=== PATIENT | male | born 1955 | race Caucasian/White ===

== ENCOUNTER 2018-08-22 05:47 | Emergency (ER) ==
[2018-08-22 05:51] VITALS: BP 143/86; TEMP 98.5; BMI 30.1
--- NOTE | 2018-08-22 06:08 | ED.PDOC ---
General ED Provider: Dr. HUMERA AUSTIN-ER Chief Complaint: Sore Throat Stated Complaint: my throat is not getting better Time Seen by Physician: 06:06 Mode of Arrival: Walk-In Information Source: Patient Exam Limitations: No limitations Primary Care Provider: HUMERA AUSTIN Nursing and Triage Documentation Reviewed and Agree: Yes Does patient meet sepsis criteria?: No System Inflammatory Response Syndrome: Not Applicable Sepsis Protocol: For patient's 13 years and over: Temp is 96.8 and below OR 101 and greater Pulse >90 BPM Resp >20/minute Acutely Altered Mental Status Are patient's symptoms suggestive of a new infection, such as: -Pneumonia -Skin, Soft Tissue -Endocarditis -UTI -Bone, Joint Infection -Implantable Device -Acute Abdominal Infection -Wound Infection -Meningitis -Blood Stream Catheter Infection -Unknown EENT Complaint Exam - Throat Complaint/Exam Onset/Duration: a few days Symptoms Are: Still present Timimg: Constant Initial Severity: Mild Current Severity: Moderate Aggravating: Reports: Eating Alleviating: Reports: Antipyretics Associated Signs and Symptoms: Reports: Fever, Dysphagia, Nasal congestion Related History: Reports: Similar Episode Uvula Midline: Yes Lesvia-tonsillar Fluctuence: No Scarlatinaform Rash Present: No Exanthem: Present: Pharynx Vesicles: Present: Pharynx Stridor Present: No Sinus Tenderness Present: No Tonsillar Hypertrophy Present: No Tonsillar Exudate Present: No Lesvia-tonsillar Swelling Present: No Adenopathy Present: No Splenomegaly Present: No Differential Diagnoses: Pharyngitis Review of Systems - Review Of Systems Constitutional: Reports: Chills, Fever Eyes: Reports: No symptoms Ears, Nose, Mouth, Throat: Reports: Throat pain, Throat swelling Respiratory: Reports: No symptoms Cardiac: Reports: No symptoms GI: Reports: No symptoms : Reports: No symptoms Musculoskeletal: Reports: No symptoms Skin: Reports: No symptoms Neurological: Reports: No symptoms Endocrine: Reports: No symptoms Hematologic/Lymphatic: Reports: No symptoms All Other Systems: Reviewed and Negative Past Medical History - Past Medical History Previously Healthy: Yes Endocrine: Reports: Unknown Cardiovascular: Reports: Unknown Respiratory: Reports: Unknown Hematological: Reports: Unknown Gastrointestinal: Reports: Unknown Genitourinary: Reports: Unknown Neuro/Psych: Reports: Unknown Musculoskeletal: Reports: Unknown Cancer: Reports: Unknown - Surgical History General Surgical History: Reports: Unknown - Family History Family History: Reports: Unknown - Social History Smoking Status: Never smoker Hx Substance Use: No Alcohol Screening: None - Immunizations Tetanus Shot up to Date: Yes Physical Exam - Physical Exam Appearance: Well-appearing, No pain distress, Well-nourished Pain Distress: Moderate Eyes: DAWNA, EOMI, Conjunctiva clear ENT: Erythema, Exudate Neck: Supple Respiratory: Airway patent, Breath sounds clear, Breath sounds equal, Respirations nonlabored Cardiovascular: RRR, Pulses normal, No rub, No murmur GI/: Soft, Nontender, No masses, Bowel sounds normal, No Organomegaly Musculoskeletal: Normal strength Skin: Warm, Dry, Normal color Neurological: Sensation intact, Motor intact, Reflexes intact, Cranial nerves intact, Alert, Oriented Psychiatric: Affect appropriate, Mood appropriate Critical Care Note - Critical Care Note Total Time (mins): 0 Course - Course Vital Signs: Temp Pulse Resp BP Pulse Ox 08/22/18 05:48 98.5 F 101 H 18 143/86 H 101 H Departure - Departure Time of Disposition: 06:09 Disposition: HOME SELF-CARE Discharge Problem: Sore throat symptom Instructions: Pharyngitis (ED) Condition: Good Pt referred to PMD for follow-up: Yes IPMP verified?: No Additional Instructions: stop amoxil ---clindamycin 300mg qid x 7 days --medrol dose pack---norco 7.5mg q 4hrs prn pain #15-----see me if not improved by the end of the week Allergies/Adverse Reactions: Allergies levofloxacin [From Levaquin] Adverse Reaction (Mild, Verified 08/22/18 05:52) difficulty sleeping while taking Home Medications: Ambulatory Orders Hydroxychloroquine Sulfate [Plaquenil] 200 mg PO DAILY 08/22/18 Levothyroxine Sodium [Synthroid] 200 mcg PO DAILY 08/22/18 Lovastatin 40 mg PO BID 08/22/18 Disposition Discussed With: Patient, Family
== END 2018-08-22 06:15 | disposition home or self-care (01) ==
LOC: ED 05:47
DX: J02.9 Acute pharyngitis, unspecified (principal)
CPT/HCPCS: 99282